=== PATIENT | male | born 1985 | race Caucasian/White ===

== ENCOUNTER 2019-04-16 03:44 | Emergency (ER) | payer OTHER ==
[2019-04-16 10:13] LABS: HIV (1/2) Antibody/Antigen Non-Reactive (NonReactive); HIV 1/2 INDEX 0.21 S/CO (<1.00); Hep C IgG Ab Non-Reactive (NonReactive); Hep C Index 0.07 S/CO (0-0.79)
[2019-04-16 10:15] LABS: HBSAB Concentration 28.26 mIU/mL; Hep B Surf AB Reactive (NonReactive)
== END 2019-04-16 04:24 | disposition home or self-care (01) ==
LOC: SCSER 03:44
DX: Z77.21 Contact with and (suspected) exposure to potentially hazardous body fluids (principal); F90.9 Attention-deficit hyperactivity disorder, unspecified type; Z79.899 Other long term (current) drug therapy
CPT/HCPCS: 86706; 86803; 87389; 99283